=== PATIENT | female | born 2000 | race African-American/Black ===

== ENCOUNTER 2022-02-12 20:34 | Emergency (ER) | payer MEDICAID ==
[~2022-02-12] VITALS: Ht 162.6 cm; Wt 63.4 kg
[2022-02-12] MEDS ORDERED: ACETAMINOPHEN 325MG TABLET PO STA (20:38)
[2022-02-12] MEDS ORDERED: SODIUM CHLORIDE 0.9% 1,000 ML IV ONE (20:45)
[2022-02-12] MEDS ORDERED: IPRATROPIUM/ALBUTEROL 0.5-3(2.5)MG/3ML NEB HHN ONE (20:45)
[2022-02-12 23:57] LABS: BASOPHILS % 0.5 % (0.0-2.0); EOSINOPHILS % 0.3 % (0.0-5.0); HEMOGLOBIN. 13.7 g/dL (12.0-16.0); LYMPHOCYTES % 33.5 % (20.0-50.0); MEAN CORPUSCULAR HEMOGLOBIN 32.6 pg (28.0-32.0); MEAN CORPUSCULAR VOLUME 94.8 fL (81.0-99.0); MEAN PLATELET VOLUME 7.5 fl (7.4-10.4); MONOCYTES % 11.4 % (2.0-8.0); NEUTROPHILS % 54.3 % (40.0-76.0); PLATELET 226 x1000/uL (130-400); RED BLOOD CELL COUNT 4.22 mill/uL (4.2-5.4); RED CELL DISTRIBUTION WIDTH 12.1 % (11.6-14.6)
[2022-02-13 00:04] LABS: CHLORIDE 101 mEq/L (98-107)
[2022-02-13 00:15] LABS: ETHANOL BLOOD < 10 mg/dL
[2022-02-13 00:17] LABS: HCG SCREEN NEGATIVE
[2022-02-13] MEDS ORDERED: IPRATROPIUM/ALBUTEROL 0.5-3(2.5)MG/3ML NEB ONE ×2 (01:36→01:49)
[2022-02-13 01:48] LABS: CLARITY URINE CLEAR (CLEAR); COLOR URINE YELLOW (YELLOW); KETONES URINE 2+ (NEGATIVE); LEUKOCYTE ESTERASE URINE NEGATIVE (NEGATIVE); NITRITE URINE NEGATIVE (NEGATIVE); OCCULT BLOOD URINE 2+ (NEGATIVE); PROTEIN URINE NEGATIVE (NEGATIVE); SPECIFIC GRAVITY URINE 1.014 (1.005-1.030)
[2022-02-13 02:20] LABS: *AMPHETAMINES SCREEN URINE NEGATIVE (NEGATIVE); *BARBITURATES SCREEN URINE NEGATIVE (NEGATIVE); *BENZODIAZEPINES SCREEN URINE NEGATIVE (NEGATIVE); *COCAINE SCREEN URINE NEGATIVE (NEGATIVE); METHADONE URINE SCREEN NEGATIVE (NEGATIVE); OPIATES URINE SCREEN NEGATIVE (NEGATIVE); PHENCYCLIDINE URINE SCREEN NEGATIVE (NEGATIVE)
[2022-02-13 02:26] LABS: CANNABINOID URINE SCREEN PRESUMTIVE POSITIVE (NEGATIVE)
[2022-02-13] MEDS ORDERED: GUAI-741 MT (02:42)
[2022-02-13] MEDS ORDERED: ALBU6.7H9 INH (02:42)
[2022-02-13] MEDS ORDERED: POTASSIUM CHLORIDE 20MEQ TABLET SR PO ONE (02:45)
[2022-02-13 02:50] VITALS: BP 132/75
== END 2022-02-13 02:53 | disposition home or self-care (01) ==
LOC: ER 20:34
DX: J06.9 Acute upper respiratory infection, unspecified (principal); R07.89 Other chest pain; J45.909 Unspecified asthma, uncomplicated; Z20.822 Contact with and (suspected) exposure to COVID-19
CPT/HCPCS: 36415; 71045; 80053; 80305; 80320; 81003; 83605; 83690; 84484; 84703; 85025; 87040; 87426; 93005; 94640; 99285; C9803; J7030; Z7610; G0480